=== PATIENT | male | born 1995 | race Two or more races ===

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

== ENCOUNTER 2017-01-15 13:49 | Emergency (ER) | payer OTHER ==
[2017-01-15 15:26] LABS: EBV Response YES
[2017-01-15 18:35] LABS: ALT 8 U/L (7-52); AST 11 U/L (13-39); Albumin 4.7 g/dL (3.2-5.2); Alkaline Phosphatase 68 U/L (34-104); Anion Gap 7 mmol/L (2-11); Blood Urea Nitrogen 12 mg/dL (6-24); C Reactive Protein < 1.00 mg/L (< 5.00); CO2 Carbon Dioxide 25 mmol/L (22-32); Calcium 9.9 mg/dL (8.6-10.3); Chloride 107 mmol/L (101-111); EGFR African American 136.3 (>60); Globulin 2.7 g/dL (2-4); Glucose 83 mg/dL (70-100); Hematocrit 43 % (42-52); Hemoglobin 14.7 g/dl (14.0-18.0); Mean Corpuscular HGB Conc 34 g/dl (31-36); Mean Corpuscular Hemoglobin 29 pg (27-31); Mean Corpuscular Volume 86 fL (80-94); Mean Platelet Volume 10 um3 (7.4-10.4); Potassium 4.1 mmol/L (3.5-5.0); Red Blood Count 5.04 10^6/ul (4.0-5.4); Red Cell Distribution Width 14 % (10.5-15); Sodium 139 mmol/L (133-145); Total Protein 7.4 g/dL (6.4-8.9); White Blood Count 7.3 10^3/ul (3.5-10.8)
[2017-01-15 19:31] LABS: Mono Internal Control QC Line Present
[2017-01-15 19:32] LABS: Manual Entry Verification MER0007
[2017-01-15 20:18] LABS: Erythrocyte Sed Rate 9 mm/Hr (0-14)
--- NOTE | 2017-01-16 13:56 | ED ---
Progress - Progress Note Progress Note: PT with slight elevation in T Bili but other labs, including other LFT wnl. Recommend recheck in 2-3 week Other chemistries including mono wnl Pt called for results - RN to give - If abd pain, vomiting to ED [facility] - f/u with Dr. Leary Course/Dx - Diagnoses Provider Diagnoses: Pharyngitis
[2017-01-17 14:05] LABS: EBV Capsid Ag IgG Ab Negative (Negative); EBV Capsid Ag IgM Ab Negative (Negative)
--- NOTE | 2017-01-19 11:43 | UC ---
yadiel Blackwell Timothy, scribed for Marysol Mccabe MD on 01/15/17 at 1419 . Throat Pain/Nasal Norman HPI - HPI Summary HPI Summary: Sasha Benoit is a 21 yo male presenting to [facility] with 4/10 sore throat and fatigue for the past 3 days. He states he has had some sinus congestion for the past few weeks. He denies any known Hx of mono. He denies any PMHx. - History of Current Complaint Chief Complaint: UCGeneralIllness Stated Complaint: SORE THROAT,FATIGUE Time Seen by Provider: 01/15/17 14:13 Hx Obtained From: Patient Onset/Duration: Gradual Onset, Lasting Days Severity: Moderate Pain Intensity: 4 Pain Scale Used: 0-10 Numeric - Allergies/Home Medications Allergies/Adverse Reactions: Allergies Allergy/AdvReac Type Severity Reaction Status Date / Time No Known Allergies Allergy Verified 09/27/16 17:39 Home Medications: Home Medications NK [No Home Medications Reported] 01/15/17 [History Confirmed 01/15/17] PMH/Surg Hx/FS Hx/Imm Hx - Surgical History Surgical History: None - Family History Known Family History: Negative: Cardiac Disease, Hypertension, Diabetes - Social History Alcohol Use: None Substance Use Type: None Smoking Status (MU): Never Smoked Tobacco Review of Systems Constitutional: Fatigue Skin: Negative Eyes: Negative ENT: Sore Throat, Sinus Congestion Respiratory: Negative Cardiovascular: Negative Gastrointestinal: Negative Genitourinary: Negative Motor: Negative Neurovascular: Negative Musculoskeletal: Negative Neurological: Negative Psychological: Negative All Other Systems Reviewed And Are Negative: Yes Physical Exam Triage Information Reviewed: Yes Appearance: Well-Appearing, No Pain Distress, Well-Nourished Vital Signs: Initial Vital Signs Temp 98.6 F 01/15/17 13:52 Pulse 98 01/15/17 13:52 Resp 16 01/15/17 13:52 Pulse Ox 100 01/15/17 13:52 Vital Signs Reviewed: Yes Eye Exam: Normal ENT: Positive: Pharyngeal erythema - posterior, TMs normal - right, TM dull - left is briceno, Tonsillar exudate - right tonsil has sores Neck exam: Normal Neck: Positive: Supple, No Lymphadenopathy Respiratory Exam: Normal Respiratory: Positive: Chest non-tender, Lungs clear, Normal breath sounds Cardiovascular Exam: Normal Cardiovascular: Positive: RRR, No Murmur, Pulses Normal, Brisk Capillary Refill Abdominal Exam: Normal Abdomen Description: Positive: Nontender, No Organomegaly, Soft Bowel Sounds: Positive: Present Musculoskeletal Exam: Normal Musculoskeletal: Positive: Strength Intact Neurological Exam: Normal - nonfocal, grossly intact Psychological Exam: Normal - conversing easily and appropriately Skin: Positive: Other - diaphoretic. Negative: rashes Throat Pain/Nasal Course/Dx - Course Assessment/Plan: Sasha Benoit is a 21 yo male presenting to [facility] with sinus congestion for the past 2 weeks with 4/10 sore throat and fatigue for the past 3 days. Pt medication list reviewed this visit. Pt was counseled regarding mono serology test, and is agreeable to have his blood tested. His Group A rapid strep test is negative. He will be discharged home with pharyngitis with appropriate instructions. - Differential Dx/Diagnosis Differential Diagnosis/HQI/PQRI: Mononucleosis, Other - strep throat Provider Diagnoses: pharyngitis Discharge - Discharge Plan Condition: Stable Disposition: HOME Patient Education Materials: Pharyngitis (ED) Forms: *Work Release Referrals: Link Leary MD [Medical Doctor] - 1 Week Additional Instructions: Please follow up with your primary care physician regarding your visit to urgent care today. Return to urgent care with any new or recurring symptoms. Today you had CRP, CBC, CMP, Monospot, ESR, EBV drawn today. The documentation as recorded by the yadiel lobato Timothy accurately reflects the service I personally performed and the decisions made by me, Marysol Mccabe MD.
== END 2017-01-15 14:44 | disposition home or self-care (01) ==
LOC: UCEAST 13:49
DX: J02.9 Acute pharyngitis, unspecified (principal); R53.83 Other fatigue; R09.81 Nasal congestion
CPT/HCPCS: 36415; 80053; 85025; 85652; 86140; 86308; 86664; 86665; 87651; 99211; G0463

== ENCOUNTER 2017-07-29 12:24 | Emergency (ER) | payer OTHER ==
[2017-07-29 12:46] VITALS: BP 128/68
--- NOTE | 2017-07-29 13:02 | UC ---
Throat Pain/Nasal Norman HPI - HPI Summary HPI Summary: Pt presents with b/l sinus pain/pressure/congestion for 10 days. Over the last week has been worse on the right side. He has not been taking anything OTC. Denies fever, chills, cough, SOB, chest pain, abdominal pain, n/v/d/c, or body aches. - History of Current Complaint Chief Complaint: UCGeneralIllness Stated Complaint: SINUS ISSUE Time Seen by Provider: 07/29/17 13:01 Hx Obtained From: Patient Severity: Moderate Pain Intensity: 4 Pain Scale Used: 0-10 Numeric - Allergies/Home Medications Allergies/Adverse Reactions: Allergies Allergy/AdvReac Type Severity Reaction Status Date / Time No Known Allergies Allergy Verified 09/27/16 17:39 PMH/Surg Hx/FS Hx/Imm Hx Previously Healthy: Yes - Surgical History Surgical History: None - Family History Known Family History: Negative: Cardiac Disease, Hypertension, Diabetes - Social History Occupation: Student Lives: Dormitory/Roommates Alcohol Use: None Substance Use Type: None Smoking Status (MU): Never Smoked Tobacco Review of Systems Constitutional: Negative Skin: Negative Eyes: Negative ENT: Nasal Discharge, Sinus Congestion, Sinus Pain/Tenderness Respiratory: Negative Cardiovascular: Negative Gastrointestinal: Negative Musculoskeletal: Negative Neurological: Negative Psychological: Negative All Other Systems Reviewed And Are Negative: Yes Physical Exam Triage Information Reviewed: Yes Appearance: Well-Appearing, No Pain Distress, Well-Nourished Vital Signs: Initial Vital Signs Temp 97.8 F 07/29/17 12:41 Pulse 84 07/29/17 12:41 Resp 16 07/29/17 12:41 BP 128/68 07/29/17 12:41 Pulse Ox 100 07/29/17 12:41 Vital Signs Reviewed: Yes Eyes: Positive: Conjunctiva Clear. Negative: Conjunctiva Inflamed, Discharge ENT: Positive: Hearing grossly normal, Pharynx normal, Nasal congestion, Nasal drainage, TMs normal, Sinus tenderness - Right > Left, Uvula midline. Negative : Pharyngeal erythema, TM bulging, TM dull, TM red, Tonsillar swelling, Tonsillar exudate, Hoarse voice Neck: Positive: Supple, Nontender, No Lymphadenopathy Respiratory: Positive: Chest non-tender, Lungs clear, Normal breath sounds, No respiratory distress, No accessory muscle use Cardiovascular: Positive: RRR, No Murmur, Pulses Normal Neurological: Positive: Alert Psychological: Positive: Age Appropriate Behavior Skin: Negative: rashes Throat Pain/Nasal Course/Dx - Course Course Of Treatment: Sinusitis - Augmentin 10 days - Differential Dx/Diagnosis Provider Diagnoses: Sinusitis Discharge - Discharge Plan Condition: Stable Disposition: HOME Prescriptions: Amoxicillin/Clavulanate TAB* [Augmentin TAB 875*] 875 mg PO BID #20 tab Patient Education Materials: Sinusitis (ED) Referrals: Link Leary MD [Primary Care Provider] - Additional Instructions: If you develop a fever, shortness of breath, chest pain, new or worsening symptoms - please call your PCP or go to the ED.
== END 2017-07-29 13:15 | disposition home or self-care (01) ==
LOC: UCEAST 12:24
DX: J32.9 Chronic sinusitis, unspecified (principal)
CPT/HCPCS: 99212; G0463

== ENCOUNTER 2017-12-27 19:49 | Emergency (ER) | payer OTHER ==
[2017-12-27 20:07] VITALS: BP 145/84
--- NOTE | 2017-12-27 21:26 | UC ---
Dizzy HPI HPI Summary: ONSET THIS MORNING OF DIZZINESS/LIGHTHEADEDNESS AND NAUSEA. WORSE WITH CHANGE IN HEAD POSITION. NO VOMITING. NO FEVER. NO HEADACHE. NO VISUAL DISTURBANCE. NO RINGING IN THE EARS. NO GAIT INSTABILITY. NO RECENT TRAUMA OR MEDICATION CHANGES. NO URINARY SYMPTOMS. NO CHANGE IN BOWEL HABITS. BM TODAY WAS NORMAL. APPETITE NORMAL. - History Of Current Complaint Chief Complaint: UCGeneralIllness Stated Complaint: DIZZY,NAUSEA Time Seen by Provider: 12/27/17 21:01 Hx Obtained From: Patient, Family/Inset Cutter - MOM Onset/Duration: Gradual Onset, Lasting Hours, Still Present Timing: Constant Severity Initially: Moderate Severity Currently: Moderate Pain Intensity: 0 Pain Scale Used: 0-10 Numeric Character: Lightheaded, Dizzy Aggravating Factor(s): Position Change Alleviating Factor(s): Nothing Associated Signs And Symptoms: Positive: Nausea. Negative: Vomiting, Tinnitus, Chest Pain, SOB, Palpitations, Unsteady Gait, Visual Changes, Change In Medication - Allergies/Home Medications Allergies/Adverse Reactions: Allergies Allergy/AdvReac Type Severity Reaction Status Date / Time No Known Allergies Allergy Verified 12/27/17 20:07 Home Medications: Home Medications Cholecalciferol (Vitamin D3) [Vitamin D3] 2,000 unit PO DAILY 12/27/17 [History Confirmed 12/27/17] Cyanocobalamin TAB* [Vitamin B12 TAB*] 500 mcg PO DAILY 12/27/17 [History Confirmed 12/27/17] PMH/Surg Hx/FS Hx/Imm Hx Previously Healthy: Yes - Surgical History Surgical History: None - Family History Known Family History: Negative: Cardiac Disease, Hypertension, Diabetes - Social History Alcohol Use: None Substance Use Type: None Smoking Status (MU): Never Smoked Tobacco Review of Systems Constitutional: Negative Eyes: Negative ENT: Negative Respiratory: Negative Cardiovascular: Negative Gastrointestinal: Nausea Genitourinary: Negative Musculoskeletal: Negative Neurological: Other - DIZZY All Other Systems Reviewed And Are Negative: Yes Physical Exam Triage Information Reviewed: Yes Appearance: Well-Appearing, No Pain Distress, Well-Nourished Vital Signs: Initial Vital Signs Temp 98.4 F 12/27/17 20:03 Pulse 90 12/27/17 20:03 Resp 16 12/27/17 20:03 BP 145/84 12/27/17 20:03 Pulse Ox 100 12/27/17 20:03 Vital Signs Reviewed: Yes Eyes: Positive: Conjunctiva Clear ENT: Positive: Hearing grossly normal, Pharynx normal, TMs normal Neck: Positive: Supple, Nontender, No Lymphadenopathy Respiratory Exam: Normal Cardiovascular Exam: Normal - SINUS ARRHYTHMIA Abdomen Description: Positive: Nontender, Soft Bowel Sounds: Positive: Present Musculoskeletal: Positive: No Edema Neurological: Positive: Alert Psychological: Positive: Normal Response To Family, Age Appropriate Behavior Skin: Negative: rashes Diagnostics - EKG Cardiac Rate: Bradycardia - 53BPM - PT STATES THIS IS BASELINE FOR HIM Cardiac Rhythm: Sinus: Normal Ectopy: None ST Segment: Normal Dizzy Course/Dx - Differential Dx/Diagnosis Provider Diagnoses: BPPV/DIZZY Discharge - Sign-Out/Discharge Documenting (check all that apply): Discharge/Admit/Transfer - Discharge Plan Condition: Stable Disposition: HOME Prescriptions: Ondansetron ODT TAB* [Zofran Odt TAB*] 4 mg PO Q6H PRN #20 tab.odt PRN Reason: Nausea/Vomiting Patient Education Materials: Benign Paroxysmal Positional Vertigo (ED), Dizziness (ED) Referrals: Link Leary MD [Primary Care Provider] - 1 Week Additional Instructions: EKG unremarkable today. Lab draw includes blood count, metabolic panel and thyroid. Consider BPPV is a diagnosis. Benign paroxysmal positional vertigo (BPPV) - sometimes called benign positional vertigo, positional vertigo, postural vertigo, or simply vertigo, is probably the most commonly recognized cause of vertigo. It is most commonly attributed to calcium debris within the posterior semicircular canal (inner ear) , known as canalithiasis. Classically, patients describe a brief spinning sensation brought on when turning in bed or tilting the head backward to look up. The dizziness is quite brief, usually seconds, but less commonly it can last minutes. It may be severe enough to halt activity for this duration. Patients may experience nausea but rarely vomit. Ear pain, hearing loss, and tinnitus are absent. The diagnosis of BPPV is suggested by its historical description and confirmed by [place]-Hallpike maneuver. The natural history of BPPV is one of repeated, brief vertiginous episodes that are predictably provoked. BPPV can be treated by canalith repositioning maneuvers. HANDOUTS PROVIDED FOR NGHIA CLAUDIO AND RADAMES MABRY GO TO THE ER WITHOUT FAIL IF YOU DEVELOP UNEQUAL PUPILS, VISUAL DISTURBANCE, GAIT INSTABILITY, SPEECH DIFFICULTY, NAUSEA/VOMITING, WORSENING HEADACHE, DIZZINESS, CONFUSION, WEAKNESS OR ANY OTHER CONCERNING SYMPTOMS. - Billing Disposition and Condition Condition: STABLE Disposition: Home
[2017-12-28 10:55] LABS: ABS Basophils 0 10^3/ul (0-0.2); ABS Eosinophils 0.1 10^3/ul (0-0.6); ABS Lymphocytes 2.2 10^3/ul (1.0-4.8); ABS Monocytes 0.6 10^3/ul (0-0.8); ABS Neutrophils 3.8 10^3/ul (1.5-7.7); ABS Nucleated RBC 0 10^3/ul; Eosinophil % 1.8 % (0-6); Hematocrit 43 % (42-52); Hemoglobin 14.7 g/dl (14.0-18.0); Lymphocyte % 32.3 % (25-47); Mean Corpuscular HGB Conc 35 g/dl (31-36); Mean Corpuscular Hemoglobin 29 pg (27-31); Mean Corpuscular Volume 85 fL (80-94); Mean Platelet Volume 9.7 um3 (7.4-10.4); Nucleated Red Blood Cells % 0.1; Platelet Count 235 10^3/ul (150-450); Red Blood Count 5.02 10^6/ul (4.00-5.40); Red Cell Distribution Width 13 % (10.5-15); White Blood Count 6.8 10^3/ul (3.5-10.8)
[2017-12-28 11:50] LABS: EGFR Non-African American 114.9 (>60)
--- NOTE | 2017-12-28 16:45 | UC ---
- Progress Note Progress Note: Please call patient and advise patient he should have labs redrawn with pcp as total bili is slightly elevated Discharge - Sign-Out/Discharge Documenting (check all that apply): Post-Discharge Follow Up - Discharge Plan Condition: Stable Disposition: HOME Prescriptions: Ondansetron ODT TAB* [Zofran Odt TAB*] 4 mg PO Q6H PRN #20 tab.odt PRN Reason: Nausea/Vomiting Patient Education Materials: Benign Paroxysmal Positional Vertigo (ED), Dizziness (ED) Referrals: Link Leary MD [Primary Care Provider] - 1 Week Additional Instructions: EKG unremarkable today. Lab draw includes blood count, metabolic panel and thyroid. Consider BPPV is a diagnosis. Benign paroxysmal positional vertigo (BPPV) - sometimes called benign positional vertigo, positional vertigo, postural vertigo, or simply vertigo, is probably the most commonly recognized cause of vertigo. It is most commonly attributed to calcium debris within the posterior semicircular canal (inner ear) , known as canalithiasis. Classically, patients describe a brief spinning sensation brought on when turning in bed or tilting the head backward to look up. The dizziness is quite brief, usually seconds, but less commonly it can last minutes. It may be severe enough to halt activity for this duration. Patients may experience nausea but rarely vomit. Ear pain, hearing loss, and tinnitus are absent. The diagnosis of BPPV is suggested by its historical description and confirmed by Jaz[place]-Hallpike maneuver. The natural history of BPPV is one of repeated, brief vertiginous episodes that are predictably provoked. BPPV can be treated by canalith repositioning maneuvers. HANDOUTS PROVIDED FOR MODIFIED SHANON AND RADAMES MANUEVERS GO TO THE ER WITHOUT FAIL IF YOU DEVELOP UNEQUAL PUPILS, VISUAL DISTURBANCE, GAIT INSTABILITY, SPEECH DIFFICULTY, NAUSEA/VOMITING, WORSENING HEADACHE, DIZZINESS, CONFUSION, WEAKNESS OR ANY OTHER CONCERNING SYMPTOMS. - Billing Disposition and Condition Condition: STABLE Disposition: Home
--- NOTE | 2017-12-29 13:47 | UC ---
- Progress Note Progress Note: CMP reviewed yesterday - pt to advise on t Bili recheck tsh wnl no change elena 12/29/2017 Discharge - Sign-Out/Discharge Documenting (check all that apply): Post-Discharge Follow Up - Discharge Plan Condition: Stable Disposition: HOME Prescriptions: Ondansetron ODT TAB* [Zofran Odt TAB*] 4 mg PO Q6H PRN #20 tab.odt PRN Reason: Nausea/Vomiting Patient Education Materials: Benign Paroxysmal Positional Vertigo (ED), Dizziness (ED) Referrals: Link Leary MD [Primary Care Provider] - 1 Week Additional Instructions: EKG unremarkable today. Lab draw includes blood count, metabolic panel and thyroid. Consider BPPV is a diagnosis. Benign paroxysmal positional vertigo (BPPV) - sometimes called benign positional vertigo, positional vertigo, postural vertigo, or simply vertigo, is probably the most commonly recognized cause of vertigo. It is most commonly attributed to calcium debris within the posterior semicircular canal (inner ear) , known as canalithiasis. Classically, patients describe a brief spinning sensation brought on when turning in bed or tilting the head backward to look up. The dizziness is quite brief, usually seconds, but less commonly it can last minutes. It may be severe enough to halt activity for this duration. Patients may experience nausea but rarely vomit. Ear pain, hearing loss, and tinnitus are absent. The diagnosis of BPPV is suggested by its historical description and confirmed by Jazmin-Hallpike maneuver. The natural history of BPPV is one of repeated, brief vertiginous episodes that are predictably provoked. BPPV can be treated by canalith repositioning maneuvers. HANDOUTS PROVIDED FOR MODIFIED SHANON AND RADAMES MANUEVERS GO TO THE ER WITHOUT FAIL IF YOU DEVELOP UNEQUAL PUPILS, VISUAL DISTURBANCE, GAIT INSTABILITY, SPEECH DIFFICULTY, NAUSEA/VOMITING, WORSENING HEADACHE, DIZZINESS, CONFUSION, WEAKNESS OR ANY OTHER CONCERNING SYMPTOMS. - Billing Disposition and Condition Condition: STABLE Disposition: Home
== END 2017-12-27 22:25 | disposition home or self-care (01) ==
LOC: UCEAST 19:49
DX: R42 Dizziness and giddiness (principal); H81.10 Benign paroxysmal vertigo, unspecified ear; R11.0 Nausea
CPT/HCPCS: 36415; 80053; 84443; 85025; 93005; 99212; G0463